=== PATIENT | female | born 1955 | race Caucasian/White ===

== ENCOUNTER → 2019-03-25 | Outpatient (CLI) | payer BC ==
--- NOTE | 2019-03-25 15:10 | REP ---
BILATERAL LOWER EXTREMITY DUPLEX DOPPLER ARTERIAL ULTRASOUND: Real-time ultrasound evaluation and duplex Doppler interrogation of bilateral lower extremity arterial systems is performed. NIKOLAS right 0.61 and left 0.73. Moderate diffuse plaquing is seen, more significantly distally in the lower extremities. Biphasic and triphasic waveforms are seen diffusely bilaterally except for monophasic waveforms in the right posterior tibial artery and distal anterior tibial artery and left distal posterior tibial artery. 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 There is stenosis of the proximal right anterior tibial artery. Right posterior tibial artery is reconstituted at its origin. On the left the distal tibioperoneal trunk and proximal posterior tibial artery are occluded with reconstitution of the mid aspect of the posterior tibial artery. PEAK SYSTOLIC VELOCITY RIGHT LEFT Common femoral artery 120.0 cm/s 103.0 cm/s Profunda 118.0 97.2 SFA 113.0 132.0 Popliteal 46.9 42.1 Proximal anterior tibial artery 121.0 63.7 Tibial peroneal trunk Occluded Occluded Proximal posterior tibial artery 29.8 Occluded Distal posterior tibial artery 21.1 13.1 Distal anterior tibial artery 15.1 26.6 IMPRESSION: Moderate plaquing and narrowing bilaterally particularly distally in the lower extremity arterial systems. Stenosis right anterior tibial artery. Occlusion right tibioperoneal trunk with reconstitution at the origin of the right posterior tibial artery. Occlusion left tibioperoneal trunk and proximal posterior tibial artery with reconstitution of the mid left [employer]GER. Electronically Signed by Lino Jones MD 03/26/2019 11:24 A
== END ==
LOC: M RAD 11:58
PROVIDERS: ATTEND Physician Assistant
DX: I70.303 Unspecified atherosclerosis of unspecified type of bypass graft(s) of the extremities, bilateral legs (principal)

== ENCOUNTER → 2020-07-27 | Outpatient (CLI) | payer BC ==
--- NOTE | 2020-07-27 15:00 | REP ---
INDICATION: ATH LORI ART OF EXT WITH INTRMT KAREN RAHUL LEGS. COMPARISON: None. 01/15/2020. TECHNIQUE: Duplex ultrasound of the lower extremity arteries bilaterally. FINDINGS: Right lower extremity: Brachial peak systole: 120 mmHg Dorsalis pedis peak systole: 60 mmHg WEIGHT RECORDER peak systole: 70 mmHg NIKOLAS: 0.50 EQUITY HOLDER: 87.6 velocity, 6 biphasic phasicity Profunda: 117 velocity, biphasic phasicity SFA prox: 108 velocity, biphasic phasicity SFA mid: 103.5 velocity, biphasic phasicity SFA dist: 110.5 velocity, biphasic phasicity Pop: Occluded velocity, phasicity JURGEN prox: 234 velocity, biphasic phasicity Tib/P tr: Occluded velocity, phasicity WEIGHT RECORDER pr: Occluded velocity, phasicity WEIGHT RECORDER dst: 95 velocity, monophasic phasicity JURGEN dst: 20.2 velocity, biphasic phasicity Left lower extremity: Brachial peak systole: 120 mmHg Dorsalis pedis peak systole: 80 mmHg WEIGHT RECORDER peak systole: 80 mmHg NIKOLAS: 0.60 EQUITY HOLDER: 93.2 velocity, biphasic phasicity Profunda: 111.8 velocity, triphasic phasicity SFA prox: 100.9 velocity, biphasic phasicity SFA mid: 34.2 velocity, biphasic phasicity SFA dist: 115.7 velocity, biphasic phasicity Pop: 65.6-occluded velocity, biphasic phasicity JURGEN prox: 39.1 velocity, biphasic phasicity Tib/P tr: Occluded velocity, phasicity WEIGHT RECORDER pr: Occluded velocity, phasicity WEIGHT RECORDER dst: 31.0 velocity, biphasic phasicity JURGEN dst: 28.0 velocity, biphasic phasicity IMPRESSION: There is moderate atheromatous plaque and intimal thickening bilaterally. 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 The occlusions extend into the tibial/peroneal trunks and into the proximal PTAs bilaterally. There is collateral flow around these occlusions bilaterally. There is no significant interval change from the prior study. <Electronically signed by Lino Nelson > 07/27/20 [id number]
== END ==
LOC: M RAD 11:08
PROVIDERS: ATTEND Physician Assistant
DX: I70.213 Atherosclerosis of native arteries of extremities with intermittent claudication, bilateral legs (principal)